=== PATIENT | male | born 1950 | race Hispanic/Latino ===

== ENCOUNTER 2022-07-28 16:36 | Inpatient (IN) | payer MEDICARE ==
[~2022-07-28 16:36] MED LIST: Iopamidol-370 76% 500 ML 1 ML ONE
[2022-07-28] MEDS ORDERED: Nitroglycerin 2% Ointment 1 INCH/1 GM Packet ONE (18:30)
[2022-07-28 18:48] LABS: #Monocytes 0.5 thou/uL (0.11-0.59); #Neutrophils 5.2 thou/uL (1.40-6.50); %Basophils 0.5 % (0.0-1.0); %Eosinophils 0.5 % (0.0-10.0); %Lymphocytes 25.7 % (21.0-51.0); %Monocytes 6.8 % (0.0-10.0); %Neutrophils 66.4 % (42.0-75.0); Hemoglobin 15.4 g/dL (14.0-18.0); Mean Corpuscular HGB CONC 34.6 g/dL (32.0-36.0); Mean Corpuscular Volume 92.5 fl (78.0-98.0); Mean Platelet Volume 9.7 fL (7.4-10.4); Platelet Count 196 10x3/uL (130-400); RBC Distribution Width 11.7 % (11.5-14.5); Red Blood Cell (RBC) Count 4.81 mill/uL (4.70-6.10); White Blood Cell (WBC) Count 7.8 10x3/uL (4.8-10.8)
[2022-07-28 19:14] LABS: ALT (SGPT) 54 U/L (8-55); AST (SGOT) 36 U/L (5-34); Albumin 4.3 g/dL (3.4-4.8); Alkaline Phosphatase 94 U/L (40-110); Anion Gap 14 mmol/L (10-20); BUN (Urea Nitrogen) 14 mg/dL (8.4-25.7); Bilirubin, Total 0.6 mg/dL (0.2-1.2); CK (CPK) 184 U/L (30-200); Calc. Creatinine Clearance 0 mL/min (70-130); Calcium 9.6 mg/dL (7.8-10.44); Carbon Dioxide 25 mmol/L (23-31); Chloride 105 mmol/L (98-107); Estimated GFR 52; Globulin 4.1 g/dL (2.4-3.5); Glucose 110 mg/dL (83-110); Lipase 13 U/L (8-78); Potassium 4.6 mmol/L (3.5-5.1); Protein, Total 8.4 g/dL (5.8-8.1); Sodium 139 mmol/L (136-145)
[2022-07-28 19:27] LABS: CKMB 2.2 ng/mL (0-6.6)
[2022-07-28] MEDS ORDERED: niCARdipine 25 MG/10 ML VIAL ONE ×2 (19:36→23:51)
[2022-07-28] MEDS ORDERED: Aspirin Chewable 81 MG TAB ONE (21:37)
[2022-07-28] MEDS ORDERED: Acetaminophen 325 MG TAB PO PRN (22:03)
[2022-07-28] MEDS ORDERED: Nitroglycerin 0.4 MG TAB (25 Tab Bottle) SL PRN (22:03)
[2022-07-28] MEDS ORDERED: Ondansetron PF 4 MG/2 ML Vial IVP PRN (22:03)
[2022-07-28] MEDS ORDERED: HYDROcodone/Acetaminophen 5/325 mg Tablet PO PRN (22:03)
[2022-07-28] MEDS ORDERED: Ondansetron ODT 4 MG TAB PO PRN (22:03)
[2022-07-28 22:51] LABS: SARS-CoV-2 NAA Rapid Test Not Detected (NotDetected)
[2022-07-28 23:28] LABS: Troponin I 0.093 ng/mL (< 0.028)
[2022-07-28] MEDS ORDERED: Metoprolol Tartrate 25 MG TAB PO SCH (23:45)
[2022-07-28] MEDS ORDERED: Losartan 25 MG TAB PO SCH (23:45)
[2022-07-28] MEDS ORDERED: Naloxone HCl 0.4 mg/ml Vial ONE (23:51)
[2022-07-29 01:02] VITALS: BMI 27.1
[2022-07-29] MEDS ORDERED: Metoprolol Tartrate 25 MG TAB ONE ×2 (01:28→09:12)
[2022-07-29 01:33] LABS: Troponin I 0.101 ng/mL (< 0.028)
[2022-07-29] MEDS ORDERED: niCARdipine 25 MG/10 ML VIAL ONE (02:07)
[2022-07-29] MEDS ORDERED: niCARdipine 25 MG in Sodium Chloride 0.9% 250 ML 250 ML IVPB SCH (03:00)
[2022-07-29 06:23] LABS: #Eosinphils 0.1 thou/uL (0.0-0.7); #Monocytes 0.7 thou/uL (0.11-0.59); #Neutrophils 4.5 thou/uL (1.40-6.50); %Basophils 0.5 % (0.0-1.0); %Lymphocytes 27.5 % (21.0-51.0); %Monocytes 9.3 % (0.0-10.0); %Neutrophils 61.7 % (42.0-75.0); Hemoglobin 15.2 g/dL (14.0-18.0); Mean Corpuscular HGB CONC 34.5 g/dL (32.0-36.0); Mean Corpuscular Hemoglobin 31.8 pg (27.0-31.0); Mean Platelet Volume 9.5 fL (7.4-10.4); Platelet Count 190 10x3/uL (130-400); RBC Distribution Width 11.8 % (11.5-14.5); Red Blood Cell (RBC) Count 4.78 mill/uL (4.70-6.10); White Blood Cell (WBC) Count 7.3 10x3/uL (4.8-10.8)
[2022-07-29 06:31] LABS: Hemoglobin A1c 5.9 % (4.0-6.0)
[2022-07-29 06:44] LABS: Anion Gap 13 mmol/L (10-20); BUN (Urea Nitrogen) 16 mg/dL (8.4-25.7); Calc. Creatinine Clearance 57 mL/min (70-130); Calcium 9.2 mg/dL (7.8-10.44); Carbon Dioxide 23 mmol/L (23-31); Cardiac Risk 6.5 (Less than 4.5); Chloride 108 mmol/L (98-107); Cholesterol 234 mg/dl (< 200 Desired); Estimated GFR 56; Glucose 120 mg/dL (83-110); HDL Cholesterol 36 mg/dL (>60 Neg Risk); LDL Cholesterol, Calculated 177 mg/dL; Potassium 3.7 mmol/L (3.5-5.1); Sodium 140 mmol/L (136-145); Triglycerides 106 mg/dL (Less than 150)
[2022-07-29] MEDS ORDERED: Losartan 25 MG TAB PO SCH (09:00)
[2022-07-29] MEDS ORDERED: Metoprolol Tartrate 25 MG TAB PO SCH ×2 (09:00)
[2022-07-29] MEDS ORDERED: Amlodipine 5 MG TAB ONE (09:12)
[2022-07-29] MEDS ORDERED: Aspirin Chewable 81 MG TAB ONE (09:12)
[2022-07-29] MEDS: Aspirin Chewable 81 MG TAB PO SCH (09:39)
[2022-07-29] MEDS: Amlodipine 5 MG TAB PO SCH (09:39)
[2022-07-29] MEDS ORDERED: Electrolyte Replacement Protocol 1 EACH FS SCH (14:30)
[2022-07-29] MEDS: Carvedilol 6.25 MG TAB PO SCH (16:11)
[2022-07-29] MEDS: hydrALAZINE 25 MG TAB PO PRN (20:00)
[2022-07-29] MEDS: Atorvastatin Calcium 40 MG TAB PO SCH (20:00)
[2022-07-30 04:47] LABS: #Eosinphils 0.2 thou/uL (0.0-0.7); #Lymphocytes 2.9 thou/uL (1.20-3.40); #Monocytes 0.5 thou/uL (0.11-0.59); #Neutrophils 3.6 thou/uL (1.40-6.50); %Basophils 0.2 % (0.0-1.0); %Eosinophils 2.4 % (0.0-10.0); %Lymphocytes 40.7 % (21.0-51.0); %Monocytes 6.8 % (0.0-10.0); %Neutrophils 49.8 % (42.0-75.0); Hemoglobin 14.2 g/dL (14.0-18.0); Mean Corpuscular HGB CONC 34.2 g/dL (32.0-36.0); Mean Corpuscular Hemoglobin 31.6 pg (27.0-31.0); Mean Corpuscular Volume 92.3 fl (78.0-98.0); Mean Platelet Volume 9.6 fL (7.4-10.4); Platelet Count 198 10x3/uL (130-400); RBC Distribution Width 11.9 % (11.5-14.5); Red Blood Cell (RBC) Count 4.51 mill/uL (4.70-6.10); White Blood Cell (WBC) Count 7.1 10x3/uL (4.8-10.8)
[2022-07-30 05:11] LABS: Anion Gap 14 mmol/L (10-20); BUN (Urea Nitrogen) 23 mg/dL (8.4-25.7); Calc. Creatinine Clearance 51 mL/min (70-130); Calcium 9.2 mg/dL (7.8-10.44); Carbon Dioxide 23 mmol/L (23-31); Chloride 108 mmol/L (98-107); Estimated GFR 49; Glucose 98 mg/dL (83-110); Magnesium 2.2 mg/dL (1.6-2.6); Potassium 3.7 mmol/L (3.5-5.1); Sodium 141 mmol/L (136-145)
[2022-07-30] MEDS ORDERED: FLU VACC QS2022-23(65YR UP)/PF 240 MCG/0.7 ML SYRINGE IM ONE (09:00)
[2022-07-30] MEDS: Carvedilol 6.25 MG TAB PO SCH ×2 (09:16→17:14)
[2022-07-30] MEDS: Aspirin Chewable 81 MG TAB PO SCH (09:16)
[2022-07-30] MEDS: Amlodipine 5 MG TAB PO SCH (09:16)
[2022-07-30] MEDS: hydrALAZINE 25 MG TAB PO PRN ×3 (13:06→23:41)
[2022-07-30] MEDS ORDERED: Amlodipine 5 MG TAB PO SCH (17:45)
[2022-07-30] MEDS: Atorvastatin Calcium 40 MG TAB PO SCH (20:03)
[2022-07-30] MEDS: hydrALAZINE 25 MG TAB PO SCH (20:03)
[2022-07-31] MEDS ORDERED: hydrALAZINE 25 MG TAB PO SCH (02:15)
[2022-07-31 05:06] LABS: Anion Gap 14 mmol/L (10-20); BUN (Urea Nitrogen) 22 mg/dL (8.4-25.7); Calc. Creatinine Clearance 60 mL/min (70-130); Calcium 9.6 mg/dL (7.8-10.44); Carbon Dioxide 20 mmol/L (23-31); Chloride 107 mmol/L (98-107); Estimated GFR 59; Glucose 126 mg/dL (83-110); Potassium 3.5 mmol/L (3.5-5.1); Sodium 137 mmol/L (136-145)
[2022-07-31] MEDS ORDERED: Potassium Bicarbonate/Cit Ac 20 MEQ TAB PO SCH (08:00)
[2022-07-31] MEDS: Aspirin Chewable 81 MG TAB PO SCH (08:57)
[2022-07-31] MEDS: hydrALAZINE 25 MG TAB PO SCH ×3 (08:57→20:43)
[2022-07-31] MEDS: Carvedilol 6.25 MG TAB PO SCH ×2 (08:57→15:19)
[2022-07-31] MEDS: Amlodipine 10 MG TAB PO SCH (08:57)
[2022-07-31] MEDS: Atorvastatin Calcium 40 MG TAB PO SCH (20:42)
[2022-08-01 05:04] LABS: #Eosinphils 0.2 thou/uL (0.0-0.7); #Lymphocytes 2.4 thou/uL (1.20-3.40); #Monocytes 0.6 thou/uL (0.11-0.59); #Neutrophils 5.1 thou/uL (1.40-6.50); %Basophils 0.2 % (0.0-1.0); %Lymphocytes 28.9 % (21.0-51.0); %Monocytes 6.8 % (0.0-10.0); %Neutrophils 62.2 % (42.0-75.0); Hemoglobin 15.7 g/dL (14.0-18.0); Mean Corpuscular HGB CONC 34.7 g/dL (32.0-36.0); Mean Corpuscular Hemoglobin 31.7 pg (27.0-31.0); Mean Corpuscular Volume 91.3 fl (78.0-98.0); Mean Platelet Volume 9.7 fL (7.4-10.4); Platelet Count 220 10x3/uL (130-400); RBC Distribution Width 11.9 % (11.5-14.5); Red Blood Cell (RBC) Count 4.94 mill/uL (4.70-6.10); White Blood Cell (WBC) Count 8.2 10x3/uL (4.8-10.8)
[2022-08-01 05:25] LABS: Anion Gap 14 mmol/L (10-20); BUN (Urea Nitrogen) 25 mg/dL (8.4-25.7); Calc. Creatinine Clearance 52 mL/min (70-130); Calcium 9.6 mg/dL (7.8-10.44); Carbon Dioxide 21 mmol/L (23-31); Chloride 105 mmol/L (98-107); Estimated GFR 50; Glucose 107 mg/dL (83-110); Potassium 3.7 mmol/L (3.5-5.1); Sodium 136 mmol/L (136-145)
[2022-08-01] MEDS ORDERED: cloNIDine 0.1 MG TAB PO PRN (07:48)
[2022-08-01] MEDS ORDERED: Carvedilol 6.25 MG TAB PO SCH (08:00)
[2022-08-01] MEDS ORDERED: hydrALAZINE 25 MG TAB PO SCH (09:00)
[2022-08-01] MEDS: Carvedilol 6.25 MG TAB PO SCH (09:16)
[2022-08-01] MEDS: Amlodipine 10 MG TAB PO SCH (09:17)
[2022-08-01 11:17] VITALS: BP 167/77; TEMP 98
== END 2022-08-01 11:54 | disposition home or self-care (01) | DRG 281 ==
LOC: ERS 16:36 → ERHOLD 21:44 → 2NO 07-29 13:37
PROVIDERS: ADMIT Hospitalist; ATTEND Internal Medicine
DX: I16.1 Hypertensive emergency (principal); I21.A1 Myocardial infarction type 2; N17.9 Acute kidney failure, unspecified; Z20.822 Contact with and (suspected) exposure to COVID-19; E78.5 Hyperlipidemia, unspecified; R73.03 Prediabetes; N18.30 Chronic kidney disease, stage 3 unspecified; I12.9 Hypertensive chronic kidney disease with stage 1 through stage 4 chronic kidney disease, or unspecified chronic kidney disease; K40.90 Unilateral inguinal hernia, without obstruction or gangrene, not specified as recurrent
CPT/HCPCS: 36415; 71275; 74174; 76870; 80048; 80053; 80061; 82550; 82553; 83036; 83690; 83735; 83880; 84443; 84484; 85025; 93005; 93306; 93976; 94760; J1650; J2310; Q9967; U0002

== ENCOUNTER 2022-08-13 08:01 | Outpatient (CLI) | payer MEDICARE, BC ==
[2022-08-13] MEDS ORDERED: Iopamidol 370 76% 100 ML VIAL ONE (08:35)
== END 2022-08-13 08:02 | disposition home or self-care (01) ==
LOC: BICCT 08:01
PROVIDERS: ATTEND Family Medicine
DX: R16.0 Hepatomegaly, not elsewhere classified (principal); I70.90 Unspecified atherosclerosis; K80.20 Calculus of gallbladder without cholecystitis without obstruction; K76.9 Liver disease, unspecified
CPT/HCPCS: 74170; 82565; Q9967

== ENCOUNTER 2022-09-13 10:30 | Outpatient (CLI) | payer MEDICARE, BC ==
[2022-09-13] MEDS ORDERED: Iopamidol-370 76% 500 ML 1 ML ONE (11:04)
== END 2022-09-13 10:31 | disposition home or self-care (01) ==
LOC: BICCT 10:30
PROVIDERS: ATTEND Internal Medicine Cardiovascular Disease
DX: I77.9 Disorder of arteries and arterioles, unspecified (principal)
CPT/HCPCS: 70498; 82565

== ENCOUNTER 2022-10-07 07:30 | Outpatient (CLI) | payer MEDICARE | END 2022-10-07 07:31 | disposition home or self-care (01) | LOC: BICULT 07:30 | PROVIDERS: ATTEND Internal Medicine Cardiovascular Disease | DX: E04.2 Nontoxic multinodular goiter (principal) | CPT/HCPCS: 76536 ==

== ENCOUNTER 2024-05-12 04:09 | Emergency (ER) | payer MEDICARE, BC ==
[2024-05-12 05:14] LABS: #Basophils 0.05 10x3/uL (0.0-0.2); %Basophils 0.6 % (0.0-1.0); %Eosinophils 1.4 % (0.0-10.0); %Lymphocytes 28.1 % (21.0-51.0); %Monocytes 7.4 % (0.0-10.0); %Neutrophils 62.4 % (42.0-75.0); Hematocrit 37.3 % (42.0-52.0); Mean Corpuscular HGB CONC 34.9 g/dL (32.0-36.0); Mean Corpuscular Hemoglobin 30.4 pg (27.0-31.0); Mean Corpuscular Volume 87.4 fL (78.0-98.0); Mean Platelet Volume 11.6 fL (7.4-10.4); Platelet Count 202 10x3/uL (130-400); RBC Distribution Width 12.7 % (11.5-14.5); Red Blood Cell (RBC) Count 4.27 mill/uL (4.70-6.10)
[2024-05-12 05:31] LABS: ALT (SGPT) 12 U/L (8-55); AST (SGOT) 14 U/L (5-34); Alkaline Phosphatase 119 U/L (40-110); Anion Gap 17 mmol/L (10-20); BUN (Urea Nitrogen) 20 mg/dL (8.4-25.7); Bilirubin, Total 0.5 mg/dL (0.2-1.2); Calc. Creatinine Clearance 0 mL/min (70-130); Calcium 9.3 mg/dL (7.8-10.44); Carbon Dioxide 21 mmol/L (23-31); Chloride 104 mmol/L (98-107); Estimated GFR 46; Globulin 3.9 g/dL (2.4-3.5); Glucose 147 mg/dL (83-110); Potassium 3.2 mmol/L (3.5-5.1); Protein, Total 7.9 g/dL (5.8-8.1); Sodium 139 mmol/L (136-145)
[2024-05-12 05:36] LABS: Troponin I 0.087 ng/mL (< 0.028)
== END 2024-05-12 06:07 | disposition home or self-care (01) ==
LOC: ERS 04:09
DX: I12.9 Hypertensive chronic kidney disease with stage 1 through stage 4 chronic kidney disease, or unspecified chronic kidney disease (principal); N18.9 Chronic kidney disease, unspecified
CPT/HCPCS: 36415; 80053; 84484; 85025; 93005; 99283

== ENCOUNTER 2024-08-22 13:55 | Inpatient (IN) | payer MEDICARE, BC ==
[~2024-08-22 13:55] MED LIST changes: -Iopamidol-370 76% 500 ML 1 ML ONE; +Iopamidol-370 76% 500 ML MDV (1 ML CHARGE) ONE
[2024-08-22 15:06] LABS: #Basophils 0.05 10x3/uL (0.0-0.2); %Basophils 0.6 % (0.0-1.0); %Eosinophils 0.9 % (0.0-10.0); %Lymphocytes 10.3 % (21.0-51.0); %Monocytes 9.6 % (0.0-10.0); %Neutrophils 78.4 % (42.0-75.0); Hematocrit 36.6 % (42.0-52.0); Hemoglobin 12.9 g/dL (14.0-18.0); Mean Corpuscular HGB CONC 35.2 g/dL (32.0-36.0); Mean Corpuscular Hemoglobin 30.6 pg (27.0-31.0); Mean Corpuscular Volume 86.7 fL (78.0-98.0); Mean Platelet Volume 11.4 fL (7.4-10.4); Platelet Count 227 10x3/uL (130-400); Red Blood Cell (RBC) Count 4.22 mill/uL (4.70-6.10)
[2024-08-22 15:29] LABS: ALT (SGPT) 20 U/L (Less than 45); AST (SGOT) 23 U/L (11-34); Albumin 4.3 g/dL (3.1-4.5); Alkaline Phosphatase 126 U/L (40-110); Anion Gap 17 mmol/L (10-20); BUN (Urea Nitrogen) 18 mg/dL (8.4-25.7); Bilirubin, Total 0.5 mg/dL (0.3-1.2); Calc. Creatinine Clearance 0 mL/min (70-130); Calcium 9.7 mg/dL (7.8-10.44); Carbon Dioxide 21 mmol/L (23-31); Chloride 106 mmol/L (98-107); Estimated GFR 48; Globulin 3.9 g/dL (2.4-3.5); Glucose 117 mg/dL (83-110); Potassium 4.1 mmol/L (3.5-5.1); Protein, Total 8.2 g/dL (5.8-8.1); Sodium 140 mmol/L (136-145)
[2024-08-22 15:35] LABS: Troponin I 0.054 ng/mL (< 0.028)
[2024-08-22] MEDS ORDERED: Aspirin Chewable 81 MG TAB ONE (15:39)
[2024-08-22 16:10] LABS: PTT 30.2 sec (22.9-36.1); Prothrombin Time 13.4 sec (12.0-14.7)
[2024-08-22] MEDS ORDERED: hydrALAZINE 20 MG/ML VIAL SLOW IVP PRN (17:22)
[2024-08-22] MEDS ORDERED: Acetaminophen 325 MG TAB PO PRN (17:22)
[2024-08-22] MEDS ORDERED: Acetaminophen 650 MG Suppository PR PRN (17:22)
[2024-08-22] MEDS ORDERED: Labetalol HCl 100 MG/20 ML VIAL SLOW IVP PRN (17:22)
[2024-08-22] MEDS ORDERED: Artificial Tear Ophth Sol 15 ML BOT EA EYE PRN (17:48)
[2024-08-22] MEDS ORDERED: Moisturizing Cream (Eucerin) 113 GM JAR TOP PRN (17:48)
[2024-08-22] MEDS ORDERED: Nitroglycerin 0.4 MG TAB (25 Tab Bottle) SL PRN (17:53)
[2024-08-22 18:40] LABS: Bilirubin Negative (Negative); Blood, Urine Negative (Negative); CAUTI Indications for Culture Alt mental st,lethar; Clarity Clear (Clear); Glucose, Urine (Dipstick) Normal (Negative); Ketone, Urine Negative (Negative); Leukocyte 75 Leu/uL (Negative); Nitrite Negative (Negative); Protein, Urine (Dipstick) Negative (Neg-Trace); RBC/HPF None Seen HPF (0-3); Specific Gravity, Urine 1.024 (1.002-1.036); Squamous Epithelial 0-3 HPF (0-3); Urobilinogen Normal mg/dL (Less than 2); pH, Urine 6.5 (5.0-9.0)
[2024-08-22 18:43] LABS: Bacteria/HPF 1+ HPF (None Seen); Urine Culture Reflex No No
[2024-08-22 20:59] LABS: Troponin I 0.053 ng/mL (< 0.028)
[2024-08-22] MEDS ORDERED: Atorvastatin Calcium 40 MG TAB PO SCH (21:00)
[2024-08-22] MEDS: Rosuvastatin 20 MG TAB PO SCH (22:21)
[2024-08-22] MEDS: D5 1/2 NS w/10 mEq KCl 1,000 ML/1,000 ML BAG IV SCH (22:23)
[2024-08-23 00:50] LABS: Troponin I 0.038 ng/mL (< 0.028)
[2024-08-23 04:44] LABS: Hemoglobin A1c 5.6 % (4.0-6.0)
[2024-08-23 04:50] LABS: Anion Gap 13 mmol/L (10-20); BUN (Urea Nitrogen) 17 mg/dL (8.4-25.7); Calc. Creatinine Clearance 49 mL/min (70-130); Calcium 9.2 mg/dL (7.8-10.44); Carbon Dioxide 23 mmol/L (23-31); Cardiac Risk 3.7 (Less than 4.5); Chloride 106 mmol/L (98-107); Cholesterol 118 mg/dl (< 200 Desired); Estimated GFR 48; Glucose 122 mg/dL (83-110); HDL Cholesterol 32 mg/dL (>60 Neg Risk); LDL Cholesterol, Calculated 68 mg/dL; Potassium 3.9 mmol/L (3.5-5.1); Sodium 138 mmol/L (136-145); Triglycerides 90 mg/dL (Less than 150)
[2024-08-23] MEDS: Enoxaparin 40 MG (0.4 mL) SYRINGE SC SCH (10:23)
[2024-08-23] MEDS: Aspirin 300 MG Suppository PR SCH (10:23)
[2024-08-23] MEDS: Famotidine/PF 20 mg/2ml Vial SLOW IVP SCH (10:23)
[2024-08-23] MEDS: Aspirin 81 mg Enteric Coated Tablet PO SCH (10:24)
[2024-08-23] MEDS: Thiamine 100 MG TAB PO SCH (10:24)
[2024-08-23] MEDS: Cyanocobalamin (Vitamin B-12) 1,000 MCG TAB PO SCH (10:24)
[2024-08-23] MEDS: Famotidine 20 MG TAB PO SCH (10:24)
[2024-08-23] MEDS: Multivit, Therapeutic 1 TAB PO SCH (10:24)
[2024-08-23] MEDS: hydrALAZINE 20 MG/ML VIAL SLOW IVP PRN (10:45)
[2024-08-23] MEDS: Losartan 25 MG TAB PO SCH (14:33)
[2024-08-23] MEDS: NIFEdipine XL 60 MG ER.TAB PO SCH ×2 (14:33→20:06)
[2024-08-23] MEDS ORDERED: hydrALAZINE 20 MG/ML VIAL SLOW IVP PRN (14:54)
[2024-08-23] MEDS: Nitroglycerin 2% Ointment 1 INCH/1 GM Packet TOP SCH (16:21)
[2024-08-23] MEDS: Labetalol HCl 100 MG/20 ML VIAL SLOW IVP PRN (17:50)
[2024-08-23] MEDS: Folic Acid 1 MG TAB PO SCH (20:05)
[2024-08-23] MEDS: Labetalol HCl 100 MG TAB PO SCH (20:06)
[2024-08-23] MEDS ORDERED: Labetalol HCl 100 MG TAB PO SCH (21:00)
[2024-08-24 01:42] VITALS: BMI 26.8
[2024-08-24 07:36] LABS: #Basophils Less than 0.03 10x3/uL (0.0-0.2); #Eosinophils Less than 0.03 10x3/uL (0.0-0.7); %Basophils 0.3 % (0.0-1.0); %Lymphocytes 17.2 % (21.0-51.0); %Monocytes 15.2 % (0.0-10.0); %Neutrophils 67.1 % (42.0-75.0); Mean Corpuscular HGB CONC 34.4 g/dL (32.0-36.0); Mean Corpuscular Hemoglobin 30.3 pg (27.0-31.0); Mean Corpuscular Volume 88.2 fL (78.0-98.0); Mean Platelet Volume 11.1 fL (7.4-10.4); Platelet Count 168 10x3/uL (130-400); RBC Distribution Width 13.1 % (11.5-14.5); Red Blood Cell (RBC) Count 3.63 mill/uL (4.70-6.10)
[2024-08-24 07:51] LABS: Anion Gap 14 mmol/L (10-20); BUN (Urea Nitrogen) 24 mg/dL (8.4-25.7); Calc. Creatinine Clearance 43 mL/min (70-130); Calcium 8.8 mg/dL (7.8-10.44); Carbon Dioxide 22 mmol/L (23-31); Chloride 104 mmol/L (98-107); Estimated GFR 41; Glucose 103 mg/dL (83-110); Magnesium 2.1 mg/dL (1.6-2.6); Potassium 3.9 mmol/L (3.5-5.1); Sodium 136 mmol/L (136-145)
[2024-08-24] MEDS: Losartan 25 MG TAB PO SCH (09:34)
[2024-08-24] MEDS ORDERED: Labetalol HCl 100 MG/20 ML VIAL SLOW IVP PRN (12:47)
[2024-08-24] MEDS ORDERED: hydrALAZINE 20 MG/ML VIAL SLOW IVP PRN (12:47)
[2024-08-24] MEDS: Aspirin 81 mg Enteric Coated Tablet PO SCH (15:13)
[2024-08-24] MEDS: Clopidogrel Bisulfate 75 MG TAB PO SCH (15:13)
[2024-08-24] MEDS ORDERED: Electrolyte Replacement Protocol 1 EACH FS SCH (17:39)
[2024-08-24] MEDS: Atorvastatin Calcium 40 MG TAB PO SCH (20:33)
[2024-08-24] MEDS: NIFEdipine XL 30 MG ER.TAB PO SCH (20:33)
[2024-08-25 03:47] LABS: #Basophils 0.04 10x3/uL (0.0-0.2); %Basophils 0.7 % (0.0-1.0); %Eosinophils 0.7 % (0.0-10.0); %Lymphocytes 33.9 % (21.0-51.0); %Monocytes 16.4 % (0.0-10.0); %Neutrophils 48.1 % (42.0-75.0); Hematocrit 32.3 % (42.0-52.0); Mean Corpuscular HGB CONC 34.1 g/dL (32.0-36.0); Mean Corpuscular Hemoglobin 30.6 pg (27.0-31.0); Mean Corpuscular Volume 89.7 fL (78.0-98.0); Mean Platelet Volume 10.9 fL (7.4-10.4); Platelet Count 160 10x3/uL (130-400); RBC Distribution Width 12.8 % (11.5-14.5)
[2024-08-25 04:20] LABS: Anion Gap 12 mmol/L (10-20); BUN (Urea Nitrogen) 23 mg/dL (8.4-25.7); Calc. Creatinine Clearance 43 mL/min (70-130); Calcium 8.7 mg/dL (7.8-10.44); Carbon Dioxide 24 mmol/L (23-31); Chloride 104 mmol/L (98-107); Estimated GFR 41; Glucose 98 mg/dL (83-110); Magnesium 2.2 mg/dL (1.6-2.6); Potassium 3.5 mmol/L (3.5-5.1); Sodium 136 mmol/L (136-145)
[2024-08-25] MEDS ORDERED: Electrolyte Replacement Protocol FS PRN (07:45)
[2024-08-25] MEDS: NIFEdipine XL 60 MG ER.TAB PO SCH (08:55)
[2024-08-25] MEDS: Potassium Chloride 20 MEQ TAB PO SCH (08:55)
[2024-08-25] MEDS: Clopidogrel Bisulfate 75 MG TAB PO SCH (08:55)
[2024-08-25] MEDS: Aspirin 81 mg Enteric Coated Tablet PO SCH (08:56)
[2024-08-25] MEDS ORDERED: Polyethylene Glycol 3350 17 GM Packet PO PRN (11:25)
[2024-08-25] MEDS: Polyethylene Glycol 3350 17 GM Packet PO SCH (12:59)
[2024-08-25 14:09] LABS: Potassium 4.2 mmol/L (3.5-5.1)
[2024-08-25] MEDS: Senokot S 8.6-50 MG TAB PO SCH (21:47)
[2024-08-27 09:34] LABS: #Basophils Less than 0.03 10x3/uL (0.0-0.2); %Basophils 0.4 % (0.0-1.0); %Eosinophils 1.4 % (0.0-10.0); %Lymphocytes 25.8 % (21.0-51.0); %Monocytes 8.6 % (0.0-10.0); %Neutrophils 63.6 % (42.0-75.0); Hematocrit 34.8 % (42.0-52.0); Hemoglobin 12.2 g/dL (14.0-18.0); Mean Corpuscular HGB CONC 35.1 g/dL (32.0-36.0); Mean Corpuscular Volume 88.3 fL (78.0-98.0); Mean Platelet Volume 10.6 fL (7.4-10.4); Platelet Count 186 10x3/uL (130-400); RBC Distribution Width 12.7 % (11.5-14.5); Red Blood Cell (RBC) Count 3.94 mill/uL (4.70-6.10)
[2024-08-27 09:53] LABS: Anion Gap 13 mmol/L (10-20); BUN (Urea Nitrogen) 19 mg/dL (8.4-25.7); Calc. Creatinine Clearance 48 mL/min (70-130); Calcium 9.5 mg/dL (7.8-10.44); Carbon Dioxide 22 mmol/L (23-31); Chloride 106 mmol/L (98-107); Estimated GFR 47; Glucose 102 mg/dL (83-110); Magnesium 2.3 mg/dL (1.6-2.6); Potassium 4.3 mmol/L (3.5-5.1); Sodium 137 mmol/L (136-145)
[2024-08-27] MEDS: Senokot S 8.6-50 MG TAB PO SCH (10:45)
[2024-08-27] MEDS: Polyethylene Glycol 3350 17 GM Packet PO SCH (10:45)
[2024-08-27 12:13] VITALS: TEMP 98.4
[2024-08-27 12:41] VITALS: BP 127/62
[2024-08-27] MEDS ORDERED: Senokot S 8.6-50 MG TAB PO SCH (21:00)
[2024-08-28] MEDS ORDERED: Polyethylene Glycol 3350 17 GM Packet PO SCH (09:00)
== END 2024-08-27 14:30 | DRG 64 ==
LOC: ERS 13:55 → 2SE 17:22
PROVIDERS: ADMIT Family Medicine; ATTEND Internal Medicine
PROC: 4A00X4Z Measurement of Central Nervous Electrical Activity, External Approach (ICD-10-PCS; principal; 2024-08-24)
DX: I63.531 Cerebral infarction due to unspecified occlusion or stenosis of right posterior cerebral artery (principal); G93.41 Metabolic encephalopathy; G93.40 Encephalopathy, unspecified; I5A Non-ischemic myocardial injury (non-traumatic); I16.9 Hypertensive crisis, unspecified; G47.33 Obstructive sleep apnea (adult) (pediatric); I65.23 Occlusion and stenosis of bilateral carotid arteries; N18.31 Chronic kidney disease, stage 3a; D63.8 Anemia in other chronic diseases classified elsewhere; I13.10 Hypertensive heart and chronic kidney disease without heart failure, with stage 1 through stage 4 chronic kidney disease, or unspecified chronic kidney disease
CPT/HCPCS: 36415; 36416; 70450; 70496; 70498; 70551; 71045; 80048; 80053; 80061; 81001; 83036; 83735; 84484; 85025; 85610; 85730; 93005; 93306; 94760; 95700; 95711; 95957; J0360; J1650; J3480; Q9967